=== PATIENT | female | born 1960 | race Caucasian/White ===

== ENCOUNTER 2018-06-06 03:51 | Emergency (ER) | payer BC ==
[~2018-06-06] VITALS: Ht 165.1 cm; Wt 68.2 kg
[2018-06-06] MEDS ORDERED: LIDOcaine Viscous 15ml cup MM STA (04:10)
[2018-06-06] MEDS ORDERED: mag hydrox/Alum hydrox/simeth 30ml oral suspension PO ONE (04:10)
[2018-06-06 04:33] LABS: BASOPHILS % (AUTO) 0.6 % (0-1); EOSINOPHILS # (AUTO) 0.2 X10'3 (0-0.9); EOSINOPHILS % (AUTO) 2.9 % (0-6); HEMATOCRIT 42.8 % (35.0-45.0); HEMOGLOBIN 14.8 g/dl (12.0-16.0); LYMPHOCYTES # (AUTO) 1.2 X10'3 (1.1-4.8); LYMPHOCYTES % (AUTO) 19.7 % (21-51); MEAN CORPUSCULAR HEMOGLOBIN 31.8 PG (27.0-31.0); MEAN CORPUSCULAR HGB CONC 34.6 g/dL (33.0-36.5); MEAN PLATELET VOLUME 9.5 FL (7.4-10.4); MONOCYTES # (AUTO) 0.6 X10'3 (0-0.9); MONOCYTES % (AUTO) 10.1 % (2-12); NEUTROPHILS % (AUTO) 66.7 % (42-75); PLATELET COUNT 226 X10'3 (140-440); RED BLOOD COUNT 4.66 X10'6 (4.20-5.60); RED CELL DISTRIBUTION WIDTH 13.1 % (11.5-14.5)
[2018-06-06 04:46] LABS: ALANINE AMINOTRANSFERASE 22 U/L (12-78); ALBUMIN 3.4 G/DL (3.4-5.0); ALBUMIN/GLOBULIN RATIO 1.1 (1.1-1.5); ALKALINE PHOSPHATASE 79 IU/L (46-116); ANION GAP 7 (8-16); ASPARTATE AMINO TRANSFERASE 17 U/L (10-37); BILIRUBIN,TOTAL 0.4 MG/DL (0.1-1.0); BLOOD UREA NITROGEN 16 MG/DL (7-18); CALCIUM 9.1 MG/DL (8.5-10.1); CHLORIDE 105 MMOL/L (99-107); GLUCOSE 101 MG/DL (70-104); POTASSIUM 3.7 MMOL/L (3.5-5.1); SODIUM 140 MMOL/L (135-145); TOTAL CARBON DIOXIDE 27.6 MMOL/L (24-32); TOTAL PROTEIN 6.5 G/DL (6.4-8.2); eGFR 74 ML/MIN
[2018-06-06 04:50] LABS: INR 0.9 INR; PARTIAL THROMBOPLASTIN TIME 27 SECONDS (22-32); PROTHROMBIN TIME 9.5 SECONDS (9.0-12.0)
[2018-06-06] MEDS ORDERED: PANT-47 PO (05:03)
[2018-06-06 05:29] VITALS: BP 118/73
== END 2018-06-06 05:30 | disposition home or self-care (01) ==
LOC: ER 03:52
DX: R07.89 Other chest pain (principal); K21.9 Gastro-esophageal reflux disease without esophagitis
CPT/HCPCS: 36415; 71045; 80053; 84443; 84484; 85025; 85610; 85730; 93005; 99284

== ENCOUNTER 2019-02-09 06:37 | Day surgery (SDC) | payer BC ==
[2019-02-08 15:29] LABS: BASOPHILS % (AUTO) 0.6 % (0-1); EOSINOPHILS # (AUTO) 0.1 X10'3 (0-0.9); EOSINOPHILS % (AUTO) 2.5 % (0-6); LYMPHOCYTES # (AUTO) 1.1 X10'3 (1.1-4.8); LYMPHOCYTES % (AUTO) 21.1 % (21-51); MEAN CORPUSCULAR HEMOGLOBIN 32.5 PG (27.0-31.0); MEAN CORPUSCULAR HGB CONC 34.6 g/dL (33.0-36.5); MEAN PLATELET VOLUME 8.9 FL (7.4-10.4); MONOCYTES # (AUTO) 0.5 X10'3 (0-0.9); MONOCYTES % (AUTO) 9.2 % (2-12); NEUTROPHILS # (AUTO) 3.5 X10'3 (1.8-7.7); NEUTROPHILS % (AUTO) 66.6 % (42-75); PRE OP HEMATOCRIT 40.8 % (35.0-45.0); PRE OP HEMOGLOBIN 14.1 g/dL (12.0-16.0); PRE OP PLATELET COUNT 227 X10'3 (140-440); RED BLOOD COUNT 4.34 X10'6 (4.20-5.60); RED CELL DISTRIBUTION WIDTH 12.8 % (11.5-14.5)
[2019-02-08 15:29] LABS: CLARITY,URINE CLEAR (Clear); COLOR,URINE YELLOW (Yellow); GLUCOSE, URINE NEGATIVE (Neg); KETONES,URINE NEGATIVE (Neg); LEUKOCYTE ESTERASE ,URINE NEGATIVE (Neg); NITRITES, URINE NEGATIVE (Neg); OCCULT BLOOD,URINE NEGATIVE (Neg); PROTEIN,URINE NEGATIVE (Neg); UROBILINOGEN,URINE 0.2 E.U/dL (0.2-1.0)
[2019-02-08 15:33] LABS: UA COLLECTION TYPE CLN CATCH MIDSTREAM
[2019-02-08 15:44] LABS: ALBUMIN 3.5 G/DL (3.4-5.0); ALBUMIN/GLOBULIN RATIO 1.1 (1.1-1.5); ALKALINE PHOSPHATASE 80 IU/L (46-116); BLOOD UREA NITROGEN 14 MG/DL (7-18); BUN/CREATININE RATIO 17.1 (6.6-38.0); CALCIUM 8.9 MG/DL (8.5-10.1); CHLORIDE 105 MMOL/L (99-107); CREATININE 0.82 MG/DL (0.40-0.90); PRE OP ALT 23 U/L (30-65); PRE OP ANION GAP 5 (8-16); PRE OP AST 17 U/L (10-37); PRE OP BILIRUB, TOTAL 0.4 MG/DL (0.0-1.0); PRE OP GLUCOSE 89 MG/DL (70-104); PRE OP POTASSIUM 3.6 MMOL/L (3.4-5.1); PRE OP SODIUM 142 MMOL/L (135-145); TOTAL CARBON DIOXIDE 31.6 MMOL/L (24-32); TOTAL PROTEIN 6.8 G/DL (6.4-8.2); eGFR 71 ML/MIN
[2019-02-09] VITALS (10 sets, daily range): BP systolic 122–154; BP diastolic 64–89
[~2019-02-09] VITALS: Ht 162.6 cm; Wt 74.7 kg
[~2019-02-09 06:37] MED LIST: ESTR1TAB19 PO; LISI40TA4 PO; PANT20TA3 PO; PROG100C11 PO; TEST5GEL2 TOP; ceFOXitin 2 GM ADDvantage bag 100 ML IV ONE; famotidine 20mg tablet PO ONE; ringers solution, lacted 1,000 ML IV ONE; ringers solution, lacted 1,000 ML IV SCH
[2019-02-09] MEDS ORDERED: LIDOcaine 1% (10mg/ml) 2ml vial ONE (06:45)
[2019-02-09] MEDS ORDERED: ceFAZolin 1000mg inj ONE (07:33)
[2019-02-09] MEDS ORDERED: BUPIVAcaine/PF 2.5 mg/ml (0.25%) 30ml vial ONE (07:34)
[2019-02-09] MEDS ORDERED: ringers solution, lacted 1,000 ML IV SCH (08:56)
[2019-02-09] MEDS ORDERED: midazolam 2 mg/2 ml injection ONE (08:59)
[2019-02-09] MEDS ORDERED: fentaNYL/PF 50MCG/1 ML 2ML syringe ONE (08:59)
[2019-02-09] MEDS ORDERED: morphine 4 MG/ML inj SYRINge IV PRN ×2 (09:00)
[2019-02-09] MEDS ORDERED: labetalol 20mg/4ml (5mg/ml) syringe IV PRN (09:00)
[2019-02-09] MEDS ORDERED: hydrALAZINE 20mg/ml inj. IV PRN (09:00)
[2019-02-09] MEDS ORDERED: fentaNYL/PF 50MCG/1 ML 2ML syringe IV PRN ×2 (09:00)
[2019-02-09] MEDS ORDERED: ondansetron/PF 4mg/2ml inj IV PRN (09:00)
[2019-02-09] MEDS ORDERED: glycopyrrolate 0.2mg/ml inj ONE (09:01)
[2019-02-09] MEDS ORDERED: ondansetron/PF 4mg/2ml inj ONE (09:01)
[2019-02-09] MEDS ORDERED: neostigmine methylsulfate 1 MG/ML 10ml vial ONE (09:01)
[2019-02-09] MEDS ORDERED: propofol inj 20 ML IV ONE (09:01)
[2019-02-09] MEDS ORDERED: rocuronium 10mg/ml inj IV ONE (09:01)
[2019-02-09] MEDS ORDERED: LIDOcaine 2% (20mg/ml) 5ml vial ONE (09:01)
[2019-02-09] MEDS ORDERED: dexamethasone sod phosphate 4mg/ml inj. ONE (09:01)
[2019-02-09] MEDS ORDERED: labetalol 20mg/4ml (5mg/ml) syringe IV ONE (10:04)
--- NOTE | 2019-02-09 10:20 | NUR ---
Received from OR via BED , accompanied by Anesthesiologist DR SANTOS and report given by Anesthesiolgist. PATIENT WAKING UP, DENIES PAIN, V/S WNL, NEUROVASCULAR CHECKS INTACT, 20G PIV RUE, SCD ON, BANDAIDS TO LAP SIGHTS OF ABDOMEN AND STERISTRIPS CDI.
[2019-02-09] MEDS ORDERED: HYDROcodone/acetaminophen 10/325mg tab PO ONE (11:05)
--- NOTE | 2019-02-09 11:40 | NUR ---
PATIENT A&OX4, STATES PAIN WELL CONTROLLED AT THIS TIME, V/S WNL, NEUROVASCULAR CHECKS INTACT, 20G PIV RUE D/C, SCD OFF, BANDAIDS TO LAP SIGHTS OF ABDOMEN AND STERISTRIPS CDI. I HAVE REVIEWED D/C INSTRUCTIONS WITH PATIENT AND FAMILY AND THEY HAVE VERBALIZED UNDERSTANDING. PATIENT D/C HOME WITH FAMILY TO TRANSPORT AND ALL BELONGINGS..
== END 2019-02-09 11:40 | disposition home or self-care (01) ==
LOC: PAS 06:37
PROVIDERS: ATTEND Surgery
DX: K80.10 Calculus of gallbladder with chronic cholecystitis without obstruction (principal); K82.8 Other specified diseases of gallbladder; I10 Essential (primary) hypertension; Z79.899 Other long term (current) drug therapy; Z72.89 Other problems related to lifestyle; Z90.710 Acquired absence of both cervix and uterus; Z98.890 Other specified postprocedural states
CPT/HCPCS: 36415; 47562; 80053; 81003; 82948; 85025; J0690; J0694; J1100; J2001; J2250; J2270; J2405; J2704; J2710; J3010; J3490; J7120; A4215; A4618; A7000

== ENCOUNTER → 2023-09-04 | Outpatient (CLI) | payer BC ==
[~2023-09-04] MED LIST changes: +LISI40TA13 PO; -LISI40TA4 PO; +PANT20TA18 PO; -PANT20TA3 PO; -ceFOXitin 2 GM ADDvantage bag 100 ML IV ONE; -famotidine 20mg tablet PO ONE; -ringers solution, lacted 1,000 ML IV ONE; -ringers solution, lacted 1,000 ML IV SCH
== END | disposition home or self-care (01) ==
LOC: RAD 10:14
PROVIDERS: ATTEND Orthopaedic Surgery
DX: N13.30 Unspecified hydronephrosis (principal); N20.0 Calculus of kidney; I70.90 Unspecified atherosclerosis; R19.5 Other fecal abnormalities; Z90.49 Acquired absence of other specified parts of digestive tract; Z90.710 Acquired absence of both cervix and uterus
CPT/HCPCS: 74176

== ENCOUNTER 2024-01-28 10:59 | Outpatient (CLI) | payer BC | END 2024-01-28 23:59 | disposition home or self-care (01) | LOC: MRI 10:59 | PROVIDERS: ATTEND Orthopaedic Surgery | DX: S83.241A Other tear of medial meniscus, current injury, right knee, initial encounter (principal); M22.41 Chondromalacia patellae, right knee; X58.XXXA Exposure to other specified factors, initial encounter; Y93.89 Activity, other specified; Y92.89 Other specified places as the place of occurrence of the external cause; Y99.8 Other external cause status | CPT/HCPCS: 73721 ==